=== PATIENT | male | born 1975 | race Caucasian/White ===

== ENCOUNTER 2020-12-28 21:15 | Emergency (ER) | payer OTHER ==
--- NOTE | 2020-12-28 21:40 | ERPHSYRPT ---
- History of Present Illness Time Seen by Provider: 12/28/20 21:40 Source: patient Exam Limitations: no limitations Physician History: This a 45-year-old white male who was feeling fine yesterday but this morning woke up with a headache and just not feeling well. He has no known exposure to anyone with positive Covid 19 infection. Later in the day he noticed a fever that was as high as 103 F. He has some myalgias and arthralgias. He denies nausea vomiting diarrhea. Timing/Duration: today Cough Quality/Degree: no cough Possible Cause: no prior episodes Associated Symptoms: fever, chills, headache Allergies/Adverse Reactions: No Known Drug Allergies Allergy (Unverified 12/28/20 21:35) Home Medications: Hydrocodone/Acetaminophen [Hydrocodone-Acetamin 7.5-325] 1 tab PO BID 12/28/20 [History] Tizanidine HCl 4 mg [Zanaflex 4 MG] 4 mg PO DAILY 12/28/20 [History] Travel Risk - International Travel Have you traveled outside of the country in past 3 weeks: No - Coronavirus Screening Are you exhibiting any of the following symptoms?: Yes Symptoms: Fever, Headaches/Body Aches/Fatigue Close contact with a COVID-19 positive Pt in past 14-21 Days: No - Vaccine Status Have you recieved a Covid-19 vaccination: No - Review of Systems Constitutional: Fever, Weakness Eyes: No Symptoms Ears, Nose, & Throat: No Symptoms Respiratory: No Symptoms Cardiac: No Symptoms Abdominal/Gastrointestinal: No Symptoms Genitourinary Symptoms: No Symptoms Musculoskeletal: No Symptoms Skin: No Symptoms Neurological: Headache Psychological: No Symptoms Endocrine: No Symptoms Hematologic/Lymphatic: No Symptoms Immunological/Allergic: No Symptoms All Other Systems: Reviewed and Negative - Past Medical History Pertinent Past Medical History: Yes - Past Surgical History Past Surgical History: Yes - Nursing Vital Signs Nursing Vital Signs: Initial Vital Signs Temperature 100.3 F 12/28/20 21:16 Pulse Rate 86 12/28/20 21:16 Respiratory Rate 20 12/28/20 21:16 Blood Pressure 96/64 12/28/20 21:16 O2 Sat by Pulse Oximetry 95 12/28/20 21:16 Pain Scale Pain Intensity 0 - Physical Exam General Appearance: no apparent distress, alert, anxiety Eye Exam: PERRL/EOMI, eyes nml inspection Ears, Nose, Throat Exam: TMs normal, dry mucous membranes Neck Exam: normal inspection, non-tender, supple, full range of motion Respiratory Exam: normal breath sounds, lungs clear, airway intact, No chest tenderness, No respiratory distress Cardiovascular Exam: regular rate/rhythm, normal heart sounds, normal peripheral pulses Gastrointestinal/Abdomen Exam: soft, normal bowel sounds, No tenderness Rectal Exam: not done Back Exam: normal inspection, normal range of motion, No CVA tenderness Extremity Exam: normal inspection, normal range of motion, pelvis stable Neurologic Exam: alert, oriented x 3, cooperative, 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, normal mood/affect, nml cerebellar function, nml station & gait, sensation nml Skin Exam: normal color, warm, dry Lymphatic Exam: No adenopathy SpO2 Interpretation: normal SpO2: 95 O2 Delivery: Room Air - Course Nursing assessment & vital signs reviewed: Yes EKG Interpreted by Me: RATE (85), Sinus Rhythm, NORMAL AXIS, NORMAL INTERVALS, NORMAL QRS, NORMAL ST-T, Other (No acute ischemic changes.) Ordered Tests: Active Orders 24 hr Category Date Time Status EKG-ER Only STAT Care 12/28/20 21:44 Active IV Insertion STAT Care 12/28/20 21:44 Active Isolation, Initiate & Maintain STAT Care 12/28/20 21:44 Active CHEST 1 VIEW (PORTABLE) Stat Exams 12/28/20 21:46 Taken BLOOD CULTURE Stat Lab 12/28/20 22:27 Received CBC W DIFF Stat Lab 12/28/20 22:25 Completed CMP Stat Lab 12/28/20 22:25 Completed D-DIMER QUANTITATIVE Stat Lab 12/28/20 22:25 Completed Ferritin Stat Lab 12/28/20 22:25 Completed INFLUENZA A+B RONNELL Stat Lab 12/28/20 22:27 Completed LDH-LACTATE DEHYDROGENASE Stat Lab 12/28/20 22:25 Completed Lactic Acid Stat Lab 12/28/20 22:16 Completed [place] Screen Stat Lab 12/28/20 22:25 Completed TROPONIN Q3H Lab 12/28/20 22:25 Completed TROPONIN Q3H Lab 12/29/20 00:45 Ordered TROPONIN Q3H Lab 12/29/20 03:45 Ordered TROPONIN Q3H Lab 12/29/20 06:45 Ordered TROPONIN Q3H Lab 12/29/20 09:45 Ordered UA W/RFX UR CULTURE Stat Lab 12/28/20 21:49 Completed Medication Summary Discontinued Medications Generic Name Dose Route Start Last Admin Trade Name Tayla PRN Reason Stop Dose Admin Sodium Chloride 1,000 mls @ 999 mls/hr 12/28/20 21:44 12/28/20 22:33 Sodium Chloride 0.9% 1000 Ml IV 12/28/20 22:44 999 mls/hr .Q1H1M STA Administration Sodium Chloride Confirm 12/28/20 22:31 Sodium Chloride 0.9% 1000 Ml Administered 12/28/20 22:32 Dose 1,000 mls @ ud .ROUTE .STK-MED ONE Lab/Rad Data: Laboratory Result Diagrams 12/28/20 22:25 12/28/20 22:25 Laboratory Results 12/28/20 12/28/20 12/28/20 Range/Units 22:27 22:27 22:25 WBC (4.0-10.5) K/mm3 RBC (4.1-5.6) M/mm3 Hgb (12.5-18.0) gm/dl Hct (42-50) % MCV (78-100) fl MCH (26-32) pg MCHC (32-36) g/dl RDW (11.5-14.0) % Plt Count (150-450) K/mm3 MPV (7.5-11.0) fl Gran % (36.0-66.0) % Eos # (Auto) (0-0.5) Absolute Lymphs (auto) (1.0-4.6) Absolute Monos (auto) (0.0-1.3) Lymphocytes % (24.0-44.0) % Monocytes % (0.0-12.0) % Eosinophils % (0.00-5.0) % Basophils % (0.0-0.4) % Absolute Granulocytes (1.4-6.9) Basophils # (0-0.4) D-Dimer (215-500) ng/mL Sodium (137-145) mmol/L Potassium (3.5-5.1) mmol/L Chloride (98-107) mmol/L Carbon Dioxide (22-30) mmol/L Anion Gap (5-15) MEQ/L BUN (9-20) mg/dL Creatinine (0.66-1.25) mg/dL Estimated GFR ML/MIN Glucose (74-106) mg/dL Lactic Acid (0.4-2.0) Calcium (8.4-10.2) mg/dL Ferritin (17.9-464) ng/mL Total Bilirubin (0.2-1.3) mg/dL AST (17-59) U/L ALT (0-50) U/L Alkaline Phosphatase (38-126) U/L Lactate Dehydrogenase (120-246) U/L Troponin I (0.000-0.034) ng/mL Serum Total Protein (6.3-8.2) g/dL Albumin (3.5-5.0) g/dL Urine Color (YELLOW) Urine Appearance (CLEAR) Urine pH (5-6) Ur Specific Loris (1.005-1.025) Urine Protein (Negative) Urine Ketones (NEGATIVE) Urine Blood (0-5) Mark/ul Urine Nitrite (NEGATIVE) Urine Bilirubin (NEGATIVE) Urine Urobilinogen (0-1) mg/dL Ur Leukocyte Esterase (NEGATIVE) Urine WBC (Auto) (0-5) /HPF Urine RBC (Auto) (0-2) /HPF U Epithel Cells (Auto) (FEW) /HPF Urine Bacteria (Auto) (NEGATIVE) /HPF Urine Culture Reflexed (NO) Urine Glucose (NEGATIVE) mg/dL Monoscreen NEGATIVE (Negative) Influenza Type A Ag NEGATIVE (NEGATIVE) Influenza Type B Ag NEGATIVE (NEGATIVE) Group A Strep Antibody NOT DETECTED (NEGATIVE) 12/28/20 12/28/20 12/28/20 Range/Units 22:25 22:25 22:25 WBC (4.0-10.5) K/mm3 RBC (4.1-5.6) M/mm3 Hgb (12.5-18.0) gm/dl Hct (42-50) % MCV (78-100) fl MCH (26-32) pg MCHC (32-36) g/dl RDW (11.5-14.0) % Plt Count (150-450) K/mm3 MPV (7.5-11.0) fl Gran % (36.0-66.0) % Eos # (Auto) (0-0.5) Absolute Lymphs (auto) (1.0-4.6) Absolute Monos (auto) (0.0-1.3) Lymphocytes % (24.0-44.0) % Monocytes % (0.0-12.0) % Eosinophils % (0.00-5.0) % Basophils % (0.0-0.4) % Absolute Granulocytes (1.4-6.9) Basophils # (0-0.4) D-Dimer 543 H* (215-500) ng/mL Sodium 134 L (137-145) mmol/L Potassium 4.0 (3.5-5.1) mmol/L Chloride 101 (98-107) mmol/L Carbon Dioxide 24 (22-30) mmol/L Anion Gap 13.1 (5-15) MEQ/L BUN 13 (9-20) mg/dL Creatinine 1.14 (0.66-1.25) mg/dL Estimated GFR > 60.0 ML/MIN Glucose 113 H (74-106) mg/dL Lactic Acid (0.4-2.0) Calcium 8.7 (8.4-10.2) mg/dL Ferritin 98.6 (17.9-464) ng/mL Total Bilirubin 0.40 (0.2-1.3) mg/dL AST 23 (17-59) U/L ALT 30 (0-50) U/L Alkaline Phosphatase 42 (38-126) U/L Lactate Dehydrogenase 141 (120-246) U/L Troponin I < 0.012 (0.000-0.034) ng/mL Serum Total Protein 6.1 L (6.3-8.2) g/dL Albumin 3.8 (3.5-5.0) g/dL Urine Color (YELLOW) Urine Appearance (CLEAR) Urine pH (5-6) Ur Specific Loris (1.005-1.025) Urine Protein (Negative) Urine Ketones (NEGATIVE) Urine Blood (0-5) Mark/ul Urine Nitrite (NEGATIVE) Urine Bilirubin (NEGATIVE) Urine Urobilinogen (0-1) mg/dL Ur Leukocyte Esterase (NEGATIVE) Urine WBC (Auto) (0-5) /HPF Urine RBC (Auto) (0-2) /HPF U Epithel Cells (Auto) (FEW) /HPF Urine Bacteria (Auto) (NEGATIVE) /HPF Urine Culture Reflexed (NO) Urine Glucose (NEGATIVE) mg/dL Monoscreen (Negative) Influenza Type A Ag (NEGATIVE) Influenza Type B Ag (NEGATIVE) Group A Strep Antibody (NEGATIVE) 12/28/20 12/28/20 12/28/20 Range/Units 22:25 22:16 21:49 WBC 5.4 (4.0-10.5) K/mm3 RBC 4.91 (4.1-5.6) M/mm3 Hgb 13.7 (12.5-18.0) gm/dl Hct 41.5 L (42-50) % MCV 84.5 (78-100) fl MCH 27.9 (26-32) pg MCHC 33.0 (32-36) g/dl RDW 13.1 (11.5-14.0) % Plt Count 192 (150-450) K/mm3 MPV 12.6 H (7.5-11.0) fl Gran % 80.5 H (36.0-66.0) % Eos # (Auto) 0.08 (0-0.5) Absolute Lymphs (auto) 0.28 L (1.0-4.6) Absolute Monos (auto) 0.68 (0.0-1.3) Lymphocytes % 5.1 L (24.0-44.0) % Monocytes % 12.5 H (0.0-12.0) % Eosinophils % 1.5 (0.00-5.0) % Basophils % 0.4 (0.0-0.4) % Absolute Granulocytes 4.38 (1.4-6.9) Basophils # 0.02 (0-0.4) D-Dimer (215-500) ng/mL Sodium (137-145) mmol/L Potassium (3.5-5.1) mmol/L Chloride (98-107) mmol/L Carbon Dioxide (22-30) mmol/L Anion Gap (5-15) MEQ/L BUN (9-20) mg/dL Creatinine (0.66-1.25) mg/dL Estimated GFR ML/MIN Glucose (74-106) mg/dL Lactic Acid 1.3 (0.4-2.0) Calcium (8.4-10.2) mg/dL Ferritin (17.9-464) ng/mL Total Bilirubin (0.2-1.3) mg/dL AST (17-59) U/L ALT (0-50) U/L Alkaline Phosphatase (38-126) U/L Lactate Dehydrogenase (120-246) U/L Troponin I (0.000-0.034) ng/mL Serum Total Protein (6.3-8.2) g/dL Albumin (3.5-5.0) g/dL Urine Color YELLOW (YELLOW) Urine Appearance CLEAR (CLEAR) Urine pH 8.0 (5-6) Ur Specific [place]is 1.023 (1.005-1.025) Urine Protein NEGATIVE (Negative) Urine Ketones NEGATIVE (NEGATIVE) Urine Blood NEGATIVE (0-5) Mark/ul Urine Nitrite NEGATIVE (NEGATIVE) Urine Bilirubin NEGATIVE (NEGATIVE) Urine Urobilinogen 4 (0-1) mg/dL Ur Leukocyte Esterase NEGATIVE (NEGATIVE) Urine WBC (Auto) NONE (0-5) /HPF Urine RBC (Auto) NONE (0-2) /HPF U Epithel Cells (Auto) NONE (FEW) /HPF Urine Bacteria (Auto) NONE (NEGATIVE) /HPF Urine Culture Reflexed NO (NO) Urine Glucose NEGATIVE (NEGATIVE) mg/dL Monoscreen (Negative) Influenza Type A Ag (NEGATIVE) Influenza Type B Ag (NEGATIVE) Group A Strep Antibody (NEGATIVE) - Progress Progress: improved Air Movement: good Progress Note: 12/28/20 22:32 Chest x-ray shows mild bilateral groundglass opacities. Blood Culture(s) Obtained: Yes Counseled pt/family regarding: diagnosis, need for follow-up, rad results - Departure Departure Disposition: Home Clinical Impression: Fever, Viral illness Condition: Stable Critical Care Time: No Referrals: ARMOND HERRERA MD [Primary Care Provider] - Follow up/PCP as directed Additional Instructions: Drink plenty of fluids. Tylenol 650 mg orally every 4 hours to control fever and pain. Add 600 mg ibuprofen orally with food 3 times a day for the next 5 days. Follow-up with your primary care physician for further management. Quarantine yourself until you receive the report on your COVID-19 test Prescriptions: Prednisone 10 mg [Deltasone 10 mg] 10 mg PO TID #12 tablet
[2020-12-28] MEDS ORDERED: Sodium Chloride 0.9% 1000 ML 1,000 ML IV STA (21:44)
[2020-12-28 22:09] LABS: Appearance CLEAR (CLEAR); Bilirubin NEGATIVE (NEGATIVE); Blood NEGATIVE Ery/ul (0-5); Glucose NEGATIVE (NEGATIVE); Ketones NEGATIVE (NEGATIVE); Leukocyte Esterase NEGATIVE (NEGATIVE); Nitrite NEGATIVE (NEGATIVE); Protein,Urine Dip NEGATIVE (Negative); Specific Gravity 1.023 (1.005-1.025); Urobilinogen 4 mg/dL (0-1)
[2020-12-28] MEDS ORDERED: Sodium Chloride 0.9% 1000 ML 1,000 ML ONE (22:31)
[2020-12-28 22:33] LABS: Absolute Neutrophil Ct (ANC) 4.38 (1.4-6.9); BASOPHIL % 0.4 % (0.0-0.4); Basophil (Absolute #) 0.02 (0-0.4); Eosinophil % 1.5 % (0.00-5.0); Eosinophil (Absolute #) 0.08 (0-0.5); Hematocrit 41.5 % (42-50); Hemoglobin 13.7 gm/dl (12.5-18.0); Lymphocyte (Absolute #) 0.28 (1.0-4.6); Lymphocytes % 5.1 % (24.0-44.0); Mean Cell Volume 84.5 fl (78-100); Mean Corpuscular Hemoglobin 27.9 pg (26-32); Mean Platelet Volume 12.6 fl (7.5-11.0); Monocyte (Absolute #) 0.68 (0.0-1.3); Monocytes % 12.5 % (0.0-12.0); Neutrophil % 80.5 % (36.0-66.0); Platelet Count 192 K/mm3 (150-450); Red Blood Count 4.91 M/mm3 (4.1-5.6); Red Cell Distribution Width 13.1 % (11.5-14.0); White Blood Count 5.4 K/mm3 (4.0-10.5)
[2020-12-28 22:56] LABS: INFLUENZA A NEGATIVE (NEGATIVE); INFLUENZA B NEGATIVE (NEGATIVE)
[2020-12-28 23:25] LABS: ALBUMIN 3.8 g/dL (3.5-5.0); ALKALINE PHOSPHATASE 42 U/L (38-126); ANION GAP 13.1 MEQ/L (5-15); BLOOD UREA NITROGEN 13 mg/dL (9-20); CHLORIDE 101 mmol/L (98-107); Calcium 8.7 mg/dL (8.4-10.2); Carbon Dioxide 24 mmol/L (22-30); Creatinine 1 1.14 mg/dL (0.66-1.25); EST GLOMERULAR FILTRATION RATE > 60.0 ML/MIN; Ferritin 98.6 ng/mL (17.9-464); Glucose 113 mg/dL (74-106); LDH-LACTATE DEHYDROGENASE 141 U/L (120-246); SGOT/AST 23 U/L (17-59); SGPT/ALT 30 U/L (0-50); SODIUM 134 mmol/L (137-145); Total Protein 6.1 g/dL (6.3-8.2)
[2020-12-29] MEDS ORDERED: TYLENOL EXTRA STRENGTH 500 MG ONE (00:14)
[2020-12-29] MEDS ORDERED: TYLENOL EXTRA STRENGTH 500 MG PO STA (00:16)
--- NOTE | 2020-12-29 09:02 | XRAY ---
Indication: Fever and cough. Comparison: March 30, 2015. Portable apical lordotic chest is now underinflated crowding lung bases. Remaining heart and lungs unremarkable. Bony thorax intact again with spinal stimulator leads terminating T8.
== END 2020-12-29 00:42 | disposition home or self-care (01) ==
LOC: ED 21:15
DX: B34.9 Viral infection, unspecified (principal); R51.9 Headache, unspecified; R50.9 Fever, unspecified
CPT/HCPCS: 36000; 36415; 71045; 80053; 81001; 82728; 83605; 83615; 84484; 85025; 85379; 86308; 87040; 87400; 87651; 93005; 96360; 99284; U0003; A9270-GY

== ENCOUNTER 2021-03-12 00:50 | Emergency (ER) | payer OTHER ==
[2021-03-12] MEDS ORDERED: XYLOCAINE 1% HCL 20 ML MDV IJ ONE (00:51)
--- NOTE | 2021-03-12 01:06 | ERPHSYRPT ---
- History of Present Illness Time Seen by Provider: 03/12/21 01:06 Source: patient Exam Limitations: no limitations Physician History: This is a 45-year-old white male who presents with dental pain and fractured tooth on the right upper incisor. The fracture is been chronic. However, the pain this time, started approximately 3 days ago. Patient was placed on Augmentin the patient has taken 3 doses of this medication. He is already taking Percocet. Timing/Duration: gradual onset, days (3) Severity: mild ENT Location: dental (To moderate) Prearrival Treatment: over the counter meds, prescription meds Modifying Factors: Improves With: nothing Associated Symptoms: tooth pain Allergies/Adverse Reactions: No Known Drug Allergies Allergy (Verified 03/12/21 01:23) Home Medications: Tizanidine HCl 4 mg [Zanaflex 4 MG] 4 mg PO DAILY 12/28/20 [History] Amox Tr/Potass Clav. 500 mg [Augmentin 500-125 Tablet] 1 tab PO TID 03/12/21 [History] Oxycodone HCl/Acetaminophen [Percocet 7.5-325 mg Tablet] 1 tab PO TID 03/12/21 [History] Hx Tetanus, Diphtheria Vaccination/Date Given: No Hx Influenza Vaccination/Date Given: No Hx Pneumococcal Vaccination/Date Given: No Travel Risk - International Travel Have you traveled outside of the country in past 3 weeks: No - Coronavirus Screening Are you exhibiting any of the following symptoms?: No Close contact with a COVID-19 positive Pt in past 14-21 Days: No - Vaccine Status Have you recieved a Covid-19 vaccination: No - Review of Systems Constitutional: No Symptoms Eyes: No Symptoms Ears, Nose, & Throat: Other (Dental pain right upper incisor) Respiratory: No Symptoms Cardiac: No Symptoms Abdominal/Gastrointestinal: No Symptoms Genitourinary Symptoms: No Symptoms Musculoskeletal: No Symptoms Skin: No Symptoms Neurological: No Symptoms Psychological: No Symptoms Endocrine: No Symptoms Hematologic/Lymphatic: No Symptoms Immunological/Allergic: No Symptoms All Other Systems: Reviewed and Negative - Past Medical History Pertinent Past Medical History: Yes Neurological History: No Pertinent History ENT History: No Pertinent History Cardiac History: No Pertinent History Respiratory History: No Pertinent History Endocrine Medical History: No Pertinent History Musculoskeletal History: No Pertinent History GI Medical History: No Pertinent History History: No Pertinent History Psycho-Social History: No Pertinent History Male Reproductive Disorders: No Pertinent History - Past Surgical History Past Surgical History: Yes Neuro Surgical History: No Pertinent History Cardiac: No Pertinent History Respiratory: No Pertinent History Gastrointestinal: No Pertinent History Genitourinary: No Pertinent History Musculoskeletal: No Pertinent History Male Surgical History: Testicular Surgery Other Surgical History: HX Testicular CA. HX Multiple Back Surgeries. Internal TENS Unit (Spine Stimulator) - Social History Smoking Status: Current every day smoker How long have you smoked: 10 years Exposure to second hand smoke: Yes Drug Use: none Patient Lives Alone: No - Nursing Vital Signs Nursing Vital Signs: Initial Vital Signs Temperature 98.0 F 03/12/21 01:13 Pulse Rate 66 03/12/21 01:13 Respiratory Rate 20 03/12/21 01:13 Blood Pressure 153/104 03/12/21 01:13 O2 Sat by Pulse Oximetry 97 03/12/21 01:13 Pain Scale Pain Intensity 8 - Physical Exam General Appearance: no apparent distress, alert, anxiety Eye Exam: bilateral eye: normal inspection, PERRL, EOMI Ear Exam: bilateral ear: auricle normal Nasal Exam: normal inspection Throat Exam: pharynx normal, dental tenderness (Right upper incisor with fractured tooth) Neck Exam: normal inspection, non-tender, supple, full range of motion, trachea midline Cardiovascular/Respiratory Exam: chest non-tender, no respiratory distress Abdominal Exam: non-tender Neurologic Exam: alert, oriented x 3, cooperative, manager sports II-XII nml as tested, normal mood/affect, nml cerebellar function, nml station & gait, sensation nml Skin Exam: normal color, warm, dry SpO2 Interpretation: normal O2 Delivery: Room Air - Course Nursing assessment & vital signs reviewed: Yes Ordered Tests: Medication Summary Generic Name Dose Route Start Last Admin Trade Name Freq PRN Reason Stop Dose Admin Ceftriaxone Sodium 1,000 mg 03/12/21 01:31 Ceftriaxone Sodium 1000 Mg Inj Vial IM 03/12/21 01:32 STAT ONE - Progress Progress: unchanged Counseled pt/family regarding: diagnosis, need for follow-up - Departure Departure Disposition: Home Clinical Impression: Dental caries, Pain due to dental caries Condition: Stable Critical Care Time: No Referrals: COLEEN BENDER I [Primary Care Provider] - Follow up/PCP as directed Additional Instructions: Continue your Percocet pain medication for pain control. Follow-up with a dentist for definitive care. May add ibuprofen 600 mg orally 3 times a day with food for pain control. In addition, may use topical agents as you can purchase [id number] to help with dental pain control. Continue your Augmentin antibiotic as prescribed
[2021-03-12] MEDS ORDERED: Rocephin 1000 MG INJ IM ONE (01:31)
[2021-03-12] MEDS ORDERED: Rocephin 1000 MG INJ ONE (01:34)
[2021-03-12 01:56] VITALS: BP 157/104; PULSE 73; O2SAT 96
== END 2021-03-12 01:55 | disposition home or self-care (01) ==
LOC: ED 00:50
DX: K02.9 Dental caries, unspecified (principal); K03.81 Cracked tooth; Z72.0 Tobacco use; Z79.891 Long term (current) use of opiate analgesic
CPT/HCPCS: 96372; 99283; J0696